=== PATIENT | male | born 1980 | race Caucasian/White ===

== ENCOUNTER 2017-02-20 08:28 | Emergency (ER) | payer OTHER | END 2017-02-20 09:47 | disposition home or self-care (01) | LOC: D.ER 08:28 | DX: M25.511 Pain in right shoulder (principal); K21.9 Gastro-esophageal reflux disease without esophagitis ==

== ENCOUNTER 2017-04-12 07:19 | Day surgery (SDC) | payer OTHER ==
[~2017-04-12 07:19] MED LIST: HYDROCODONE-APA1 TAB PO
--- NOTE | 2017-04-12 10:19 | NUR ---
PT SPOKE WITH DR. SAUNDERS ABOUT NOT EXPERIENCING PAIN TO THE RIGHT SHOULDER AT THIS TIME. SURGERY CANCELLED. FOLLOW-UP APPT SCHEDULED FOR 1 MONTH OUT. PREOP MEDICATIONS RETURNED TO [facility]. PT "DISCHARGED" WITH FAMILY, AMBULATING INDEPENDENTLY.
[2017-07-07] MEDS ORDERED: PHENERGAN DM SYR5 ML PO (09:15)
[2017-07-08 06:41] VITALS: BMI 24.8
== END 2017-04-12 10:15 | disposition home or self-care (01) ==
LOC: D.OPS 07:19 → D.PAN 11:15 → D.OPS 11:30 → D.PAN 11:30
DX: M75.41 Impingement syndrome of right shoulder (principal); Z01.812 Encounter for preprocedural laboratory examination; Z01.811 Encounter for preprocedural respiratory examination; Z01.810 Encounter for preprocedural cardiovascular examination; Z53.9 Procedure and treatment not carried out, unspecified reason

== ENCOUNTER 2017-07-08 05:30 | Day surgery (SDC) | payer OTHER ==
[~2017-07-08] VITALS: Ht 160 cm; Wt 63.5 kg
--- NOTE | ~2017-07-08 | OP ---
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 POSTOPERATIVE DIAGNOSES: Impingement syndrome and acromioclavicular arthritis of the right shoulder. PROCEDURES: Right shoulder arthroscopy with arthroscopic distal clavicle excision, arthroscopic subacromial decompression. SURGEON: Ted Saunders MD ANESTHESIA: General. INTRAOPERATIVE COMPLICATIONS: None. SUMMARY OF PATHOLOGIC FINDINGS: The patient had extensive excoriation of the coracoacromial ligament as well as acromioclavicular arthropathy consistent with the preoperative MRI and diagnosis. OPERATIVE SUMMARY IN DETAIL: After obtaining the appropriate preoperative orthopedic surgery consent as well as anesthetic consultation, evaluation and clearance, the patient was brought to the operating room and placed on the operating table in supine position. After adequate general laryngeal mask airway was administered, the patient was placed in the left lateral decubitus position. All pressure points were well padded to include down leg peroneal pad as well as axillary roll. The patient was held firmly to the operating table using the vacuum pack suction system. Right upper extremity and shoulder were then prepped and draped in routine sterile fashion. The arm was held in the Arthrex traction boom at 30 degrees of forward flexion, 30 degrees of abduction with 10 pounds of traction laterally. Arthroscopy was established in the glenohumeral joint from a posterior portal. Diagnostic arthroscopy showed no intraarticular pathology at all. Attention was then turned to the subacromial space. Arthroscopy was established in the subacromial space and the above findings were noted. Accessory lateral portal was created and through which the Bradshaw tissue ablation system was utilized to denude the undersurface of the acromion of all soft tissue elements and released the coracoacromial ligament. The patient did have a type 3 acromion. Type 3 acromion having been noted, acromioplasty was then performed with a 5-0 barrel alphonso to the acromioclavicular joint and through a separate arthroscopic anterior portal, 1 cm of the distal clavicle was excised under direct arthroscopic visualization. Having completed this, the bursa on top of the rotator cuff, portions of which had been eroded through down to the rotator cuff, was completely excised. The rotator cuff was not torn, only attritional changes seen on top of it, consistent with the diagnosis and longstanding impingement. Having completed this, arthroscopy portals were closed in routine interrupted fashion using 4-0 Prolene. Sterile dressings were applied. The patient was awakened and taken to the recovery room in stable condition. All final needle and sponge counts were correct. TRANSINT:[id number] Voice Confirmation ID: [id number] DOCUMENT ID: [id number] OPERATIVE REPORT [id number] ASHLEY ABAD MD, TED GATICA at 1346 CC: [id number] DICTATION DATE: 07/08/17912 KELP CUTTER: 07/08/17 1252 [facility] [address] [place] [address]
[~2017-07-08 05:30] MED LIST changes: +PHENERGAN DM SYR5 ML PO
[2017-07-08 06:41] VITALS: BP 119/67; Ht 160 cm; Wt 63.5 kg
[2017-07-08] MEDS ORDERED: HYDROCODONE-APA1 TAB PO (09:10)
== END 2017-07-08 11:40 | disposition home or self-care (01) ==
LOC: D.OPS 05:30 → D.PAN 11:30 → D.OPS 11:40 → D.PAN 11:45
DX: M75.41 Impingement syndrome of right shoulder (principal); M19.011 Primary osteoarthritis, right shoulder; Z01.812 Encounter for preprocedural laboratory examination

== ENCOUNTER 2020-03-10 03:57 | Inpatient (IN) | payer SELFPAY ==
[2020-03-10] VITALS (21 sets, daily range): BP systolic 84–106; BP diastolic 55–87; BMI 21.3
[~2020-03-10] VITALS: Ht 160 cm; Wt 68.9 kg
--- NOTE | ~2020-03-10 | EC ---
PATIENT:ASHLEY ABAD DATE OF SERVICE: 03/10/20 SEX: M MEDICAL RECORD: [id number] DATE OF : [birth year] LOCATION:D.M2 D.210 AGE OF PATIENT: 39 ADMISSION DATE: 03/10/20 REFERRING PHYSICIAN: INTERPRETING PHYSICIAN: KURT URBINA MD ECHOCARDIOGRAM REPORT ECHO CHARGES 4 ECHO COMPLETE Date: 03/11/20 CLINICAL DIAGNOSIS: NSTEMI ECHOCARDIOGRAPHIC MEASUREMENTS (adult normal given) AC root (d.<3.7cm) 2.8 cm LV Septum d (<1.2 cm> 1.0 cm Valve Excursion 1.5 cm LV Septum (systole) 1.1 cm Left Atria (s.<4.0cm> 3.7 cm LVPW d(<1.2cm) 1.1 cm RV (d.<2.3cm) 2.9 cm LVPW (sytole) 1.2 cm LV diastole(<5.6CM) 5.4 cm MV E-F(>70mm/sec) cm LV systole 4.0 cm LVOT Diameter 1.6 cm MV exc.(>10mm) 0.9 cm Est.ejection fraction (50-75%) % DOPPLER: LVIT cm/sec A 73 cm/sec E 55 cm/sec LA cm/sec RVSP 19 mmHg LVOT 109 cm/sec AOP1/2T m/s Asc. Ao 155 cm/sec RVOT 75 cm/sec RA cm/sec PA 121 cm/sec AV Gradient Peak 9.6 mmHg AV Mean 5.4 mmHg AV Area 1.3 cm MV Gradient Peak 3.4 mmHg MV Mean 1.9 mmHg MV Area cm COMMENTS: Trailer Body Assembler: Glendy PELAEZ Raw Sampler: 3 Dr. Sevilla TAPE# PACS Pericardial Effusion N DATE OF SERVICE: Adequate 2D, color-flow imaging, spectral Doppler, and M-Mode No LVH. LV internal dimension is normal. Wall motion is normal. EF is greater than or equal to 55%. Aortic valve is tricuspid. No evidence of stenosis by Doppler interrogation. Left atrium is normal. Mitral valve shows no prolapse. Trace MR. Right-sided chambers are grossly normal. Trace TR. TRANSINT:[id number] Voice Confirmation ID: [id number] DOCUMENT ID: [id number] ECHOCARDIOGRAM REPORT [id number] PACHECOVASQUEASHLEY Zarco GREGORY A MD CC: [id number] DICTATION DATE: 03/12/20 1458 HATCHERY ATTENDANT: 03/12/20 1722 ADM IN [facility] [address] [id number]
[2020-03-10 04:47] LABS: BASOPHILS 0.2 % (0-2); EOSINOPHILS 0.3 % (0-7); HEMATOCRIT 36.8 % (42.0-54.0); HEMOGLOBIN 12.9 g/dL (13.5-17.5); IMMATURE GRANULOCYTES 0.6 % (0-5); LYMPHOCYTES 10.7 % (15-50); MCH 30.4 pg (26.0-34.0); MCHC 35.1 g/dL (31.0-37.0); MCV 86.8 fL (80.0-100.0); MEAN PLATELET VOLUME 10.9 fL (7.4-10.4); MONOCYTES 3.1 % (2-11); NEUTROPHILS 85.1 % (40-80); PLATELET COUNT 138 10x3/uL (130-400); RBC 4.24 10x6/uL (4.20-6.10); RDW 13.4 % (11.5-14.5); WBC 11.2 10x3/uL (4.8-10.8)
[2020-03-10 04:56] LABS: CALC OSMOLALITY 260 mosm/kg (275-300); CALCIUM 7.9 mg/dL (8.5-10.1); CARBON DIOXIDE 21.8 mmol/L (21.0-32.0); CHLORIDE - SERUM 97 mmol/L (98-107); CREATININE - SERUM 1.2 mg/dL (0.6-1.3); GLUCOSE 155 mg/dL (74-106); POTASSIUM - SERUM 3.1 mmol/L (3.5-5.1); SODIUM 129 mmol/L (136-145); UREA NITROGEN 10 mg/dL (7-18); eGFR NON AFRICAN AMERICAN 72 mL/min (90-120)
[2020-03-10 04:57] LABS: INR 1.15 (0.85-1.17); PROTIME 14.6 SECONDS (11.6-15.0)
[2020-03-10] MEDS ORDERED: BUTALB-APAP-CA1 EACH PO (05:27)
[2020-03-10] MEDS ORDERED: AMOXICILLIN500 M1 PO (05:27)
[2020-03-10 05:37] LABS: ALBUMIN 2.7 g/dL (3.4-5.0); ALKALINE PHOSPHATASE 171 U/L (30-120); ALT (SGPT) 104 U/L (10-68); BILIRUBIN - TOTAL 1.49 mg/dL (0.2-1.3); CKMB 1.2 U/L (0.0-3.6); CREATINE KINASE 384 UL (21-232); MAGNESIUM - SERUM 1.7 mg/dL (1.8-2.4); PROTEIN - SERUM 6.6 g/dL (6.4-8.2)
[2020-03-10 05:39] LABS: FERRITIN 3965 ng/mL (3-244); TROPONIN-I 0.512 ng/mL (0.000-0.060)
[2020-03-10 07:04] LABS: UDS - AMPHET NEGATIVE QUAL (NEGATIVE); UDS - BARB POSITIVE QUAL (NEGATIVE); UDS - BENZO NEGATIVE QUAL (NEGATIVE); UDS - COCAINE NEGATIVE QUAL (NEGATIVE); UDS - OPIATE POSITIVE QUAL (NEGATIVE); UDS - PCP NEGATIVE QUAL (NEGATIVE); UDS - THC NEGATIVE QUAL (NEGATIVE)
--- NOTE | 2020-03-10 07:26 | NUR ---
PT BACK FROM CT DENIES ANY PROBLEMS AT THIS TIME.
[2020-03-10 07:49] LABS: BILIRUBIN NEGATIVE (NEGATIVE); KETONE NEGATIVE (NEGATIVE); NITRITE NEGATIVE (NEGATIVE); UROBILINOGEN NORMAL mg/dL (< 2)
[2020-03-10 07:50] LABS: BACTERIA FEW /HPF (NONE SEEN); WHITE CELLS - URINE 0-5 HPF (0-1)
[2020-03-10 08:25] LABS: AMYLASE - SERUM 34 U/L (25-115); LIPASE 143 U/L (73-393)
--- NOTE | 2020-03-10 08:34 | NUR ---
PT VOIDED 1600CC
--- NOTE | 2020-03-10 10:41 | NUR ---
PATIENT RECIEVED FROM ED AT 1000 AFTER REPORT RECIEVED.. CARE ASSUMED AND ASSESMENT DONE.. SEE FLOW SHEET FOR ASSESMENT FINDINGS.. NURSEING CARE BY TEAM NURSING LIZ BIRD RN AND MYSELF..
[2020-03-10 11:00] LABS: CKMB 1.8 U/L (0.0-3.6)
[2020-03-10 11:01] LABS: CREATINE KINASE 491 UL (21-232); TROPONIN-I 0.208 ng/mL (0.000-0.060)
--- NOTE | 2020-03-10 11:02 | NUR ---
TRANSPORTED TO CT VIA BED
--- NOTE | 2020-03-10 12:41 | NUR ---
LAB CALLED. PT COVID TEST WAS NEGATIVE. WILL CONTINUE TO MONITOR
--- NOTE | 2020-03-10 13:02 | NUR ---
8902 DR LARRY REQUEST THAT [facility] AND RESULTS OF COVID TEST DONE THERE A MONTH AGO BE OBTAINED.. AND WHAT TEST IF ANY WERE DONE ON WEDNESDAY OF THIS LAST WEEK ON A VISIT TO THE ED AT [facility].. WHEN [facility] CALLEFD THEY STATED THAT PATIENT HAD TESTED POSITIVE IN JANUARY FOR COVID BUT HE DID NOT HAVE A REPEAT TEAT OR AN ANTIBODY REST ON WEDNESDAY THE PATIENT TOLD DR LARRY HE HAD.. [facility] CALLED AND INFORMED THE NURSE THAT THE PATIENT TESTED NEGATIVE FOR COVID ON THE RAPID SCREENING DONE TODAY.. DR LARRY INFORMED OF ALL THE TESTING RESULTS.. NO FURTHUR ORDERS ARE RECIEVED AT THIS TIME..
--- NOTE | 2020-03-10 13:07 | NUR ---
NOTIFIED DR MADDEN OF CONSULT ON PT. PAGED CARDIOLOGY TO NOTIFY THEM OF CONSULT. WILL CONTINUE TO MONITOR
--- NOTE | 2020-03-10 13:10 | NUR ---
DR URBINA PAGED BACK. NOTIFIED OF CONSULT. WILL CONTINUE TO MONITOR
--- NOTE | 2020-03-10 13:41 | NUR ---
PAGED DR FALLON FOR CONSULT. AWAITING CALL BACK
--- NOTE | 2020-03-10 13:50 | NUR ---
SPOKE WITH DR FALLON. UPDATED HIM ON CONSULT AND PT STATUS. WILL CONTINUE TO MONITOR
[2020-03-10 17:17] LABS: CKMB 1.9 U/L (0.0-3.6); CREATINE KINASE 442 UL (21-232)
[2020-03-10 17:18] LABS: TROPONIN-I 0.077 ng/mL (0.000-0.060)
[2020-03-10 22:53] LABS: CKMB 1.7 U/L (0.0-3.6); CREATINE KINASE 409 UL (21-232)
[2020-03-10 22:56] LABS: TROPONIN-I 0.062 ng/mL (0.000-0.060)
[2020-03-11] VITALS (11 sets, daily range): BP systolic 98–122; BP diastolic 58–83; Ht 160 cm; Wt 68.9 kg
--- NOTE | 2020-03-11 04:19 | NUR ---
TEMP SPIKED TO 102.0 (ORAL). ADVIL ADMINISTERED.
[2020-03-11 04:42] LABS: BASOPHILS 0.1 % (0-2); EOSINOPHILS 0.2 % (0-7); HEMATOCRIT 37.3 % (42.0-54.0); HEMOGLOBIN 12.8 g/dL (13.5-17.5); IMMATURE GRANULOCYTES 0.5 % (0-5); LYMPHOCYTES 5.3 % (15-50); MCH 29.6 pg (26.0-34.0); MCHC 34.3 g/dL (31.0-37.0); MCV 86.3 fL (80.0-100.0); NEUTROPHILS 92.9 % (40-80); PLATELET COUNT 151 10x3/uL (130-400); RBC 4.32 10x6/uL (4.20-6.10); RDW 13.6 % (11.5-14.5)
[2020-03-11 05:03] LABS: WBC 15.6 10x3/uL (4.8-10.8)
[2020-03-11 05:09] LABS: ALBUMIN 2.3 g/dL (3.4-5.0); ALKALINE PHOSPHATASE 142 U/L (30-120); ALT (SGPT) 116 U/L (10-68); BILIRUBIN - TOTAL 0.64 mg/dL (0.2-1.3); CALC OSMOLALITY 268 mosm/kg (275-300); CALCIUM 8.1 mg/dL (8.5-10.1); CARBON DIOXIDE 25.1 mmol/L (21.0-32.0); CHLORIDE - SERUM 103 mmol/L (98-107); GLUCOSE 149 mg/dL (74-106); POTASSIUM - SERUM 3.4 mmol/L (3.5-5.1); PROTEIN - SERUM 6.1 g/dL (6.4-8.2); SODIUM 134 mmol/L (136-145); UREA NITROGEN 8 mg/dL (7-18); eGFR NON AFRICAN AMERICAN 89 mL/min (90-120)
--- NOTE | 2020-03-11 11:02 | NUR ---
INSPECTOR INSULATION IN ROOM PERFORMING ECHO. PT HAS VERY LOOSE STOOLS. WILL OBTAIN SAMPLE AND SEND TO LAB FOR TESTING.
--- NOTE | 2020-03-11 12:07 | NUR ---
STOOL SAMPLE OBTAINED. SAMPLE TAKEN TO LAB. ICE WATER PROVIDED TO PT REQUESTED.
--- NOTE | 2020-03-11 17:11 | NUR ---
PT AWAKE AND ORIENTED, PRIMARILY SPEAKS SPANSISH BUT DOES UNDERSTAND SERBIAN IN A SMALL COPACITY. SHOWERED SELF WITHOUT ASSISTANCE. CL IN REACH, SRX2.
[2020-03-12] VITALS: BP 104/72
--- NOTE | 2020-03-12 02:10 | NUR ---
PT A/O X4 RR EVEN AND UNLABORED. PT TEMP DOWN TO 99.7 FROM 101.9 STARTING AT 0024. ICE PACKS APPLIED BLANKETS OFF. 0239-PT RESTING COMFORTABLY AT THIS TIME WITH EYES CLOSED. NO S/S OF DISTRESS AT THIS TIME. BED LOW CALL LIGHT WITHIN REACH. WILL CONTINUE TO MONITOR.
[2020-03-12 04:00] VITALS: BP 83/59
[2020-03-12 05:52] LABS: BASOPHILS 0.2 % (0-2); HEMATOCRIT 37.2 % (42.0-54.0); HEMOGLOBIN 12.7 g/dL (13.5-17.5); IMMATURE GRANULOCYTES 0.4 % (0-5); LYMPHOCYTES 8.8 % (15-50); MCH 29.3 pg (26.0-34.0); MCHC 34.1 g/dL (31.0-37.0); MCV 85.9 fL (80.0-100.0); MEAN PLATELET VOLUME 11.9 fL (7.4-10.4); MONOCYTES 1.1 % (2-11); NEUTROPHILS 86.5 % (40-80); PLATELET COUNT 179 10x3/uL (130-400); RBC 4.33 10x6/uL (4.20-6.10); RDW 13.7 % (11.5-14.5)
[2020-03-12 05:54] LABS: WBC 11.4 10x3/uL (4.8-10.8)
[2020-03-12 06:49] LABS: ALBUMIN 2.1 g/dL (3.4-5.0); ALKALINE PHOSPHATASE 138 U/L (30-120); ALT (SGPT) 87 U/L (10-68); BILIRUBIN - TOTAL 0.82 mg/dL (0.2-1.3); CALC OSMOLALITY 269 mosm/kg (275-300); CALCIUM 7.7 mg/dL (8.5-10.1); CARBON DIOXIDE 27.6 mmol/L (21.0-32.0); CHLORIDE - SERUM 101 mmol/L (98-107); GLUCOSE 110 mg/dL (74-106); MAGNESIUM - SERUM 1.9 mg/dL (1.8-2.4); PHOSPHOROUS 2.9 mg/dL (2.5-4.9); PROTEIN - SERUM 5.8 g/dL (6.4-8.2); SODIUM 135 mmol/L (136-145); UREA NITROGEN 9 mg/dL (7-18); eGFR NON AFRICAN AMERICAN 89 mL/min (90-120)
[2020-03-12 06:50] LABS: TROPONIN-I 0.084 ng/mL (0.000-0.060)
[2020-03-12 07:03] LABS: ERYTHROCYTE SEDIMENTATION RATE 21 mm/hr (0-15)
--- NOTE | 2020-03-12 07:33 | NUR ---
PT LAYING SUPINE, RR EVEN AND UNLABORED. DENIES NEEDS OR PAIN AT THIS TIME. CALL LIGHT WITHIN REACH. BED IN LOWEST POSITION. FEVER 100.4 WILL RECIEVE TYLENOL PER ORDER. WILL CONTINUE TO MONITOR.
[2020-03-12 11:00] VITALS: BP 109/64
[2020-03-12 11:08] LABS: BILIRUBIN NEGATIVE (NEGATIVE); EPITHELIAL CELLS OCC /hpf (0-5); KETONE NEGATIVE (NEGATIVE); NITRITE NEGATIVE (NEGATIVE); UROBILINOGEN NORMAL mg/dL (< 2); WHITE CELLS - URINE RARE HPF (0-1)
[2020-03-12 11:09] LABS: BACTERIA FEW /HPF (NONE SEEN)
[2020-03-12 12:27] LABS: AMYLASE - SERUM 43 U/L (25-115); LIPASE 195 U/L (73-393)
[2020-03-12 14:00] VITALS: BP 97/63
--- NOTE | 2020-03-12 19:00 | NUR ---
REPORT RECEIVED, WILL CONTINUE POC. PATIENT IS AAOX4, SITTING UP IN BED. NO S/S OF DISTRESS OBSERVED, RR EVEN AND UNLABORED ON ROOM AIR. PIV TO LT UPPER ARM, PATENT, INFUSING NS @ 75ML/HR. PATIENT REQUESTING SHOWER. WRAPPED IV SITE, SUPPLIED TOWELS AND TOILETRIES. PATIETN DENIES FURTHER NEEDS AT THIS TIME. CL IN REACH, BED LOCKED AND LOWERED. WILL CTM.
[2020-03-12 20:00] VITALS: BP 89/54
[2020-03-13] VITALS: BP 96/62
[2020-03-13 04:00] VITALS: BP 103/67
[2020-03-13 06:00] LABS: BASOPHILS 0.2 % (0-2); EOSINOPHILS 5.2 % (0-7); HEMATOCRIT 32.7 % (42.0-54.0); HEMOGLOBIN 11.4 g/dL (13.5-17.5); IMMATURE GRANULOCYTES 0.6 % (0-5); LYMPHOCYTES 8.6 % (15-50); MCH 29.8 pg (26.0-34.0); MCHC 34.9 g/dL (31.0-37.0); MCV 85.4 fL (80.0-100.0); MEAN PLATELET VOLUME 10.7 fL (7.4-10.4); MONOCYTES 1.4 % (2-11); PLATELET COUNT 199 10x3/uL (130-400); RBC 3.83 10x6/uL (4.20-6.10); RDW 13.8 % (11.5-14.5); WBC 13.7 10x3/uL (4.8-10.8)
[2020-03-13 06:17] LABS: ALBUMIN 1.9 g/dL (3.4-5.0); ALKALINE PHOSPHATASE 129 U/L (30-120); ALT (SGPT) 82 U/L (10-68); BILIRUBIN - TOTAL 0.78 mg/dL (0.2-1.3); CALC OSMOLALITY 268 mosm/kg (275-300); CALCIUM 7.4 mg/dL (8.5-10.1); CARBON DIOXIDE 27.9 mmol/L (21.0-32.0); CHLORIDE - SERUM 103 mmol/L (98-107); CREATININE - SERUM 0.9 mg/dL (0.6-1.3); GLUCOSE 98 mg/dL (74-106); MAGNESIUM - SERUM 1.9 mg/dL (1.8-2.4); PHOSPHOROUS 2.4 mg/dL (2.5-4.9); PROTEIN - SERUM 5.4 g/dL (6.4-8.2); SODIUM 135 mmol/L (136-145); UREA NITROGEN 9 mg/dL (7-18); eGFR NON AFRICAN AMERICAN > 90 mL/min (90-120)
--- NOTE | 2020-03-13 06:18 | NUR ---
TEMP 101.5 ORAL. BLOOD CULTURES ORDERED. PRN MOTRIN ADMINISTERED PER ORDERS.
--- NOTE | 2020-03-13 07:20 | NUR ---
RECEIVE BEDSIDE SHIFT REPORT. AWAKE RESTING IN BED. PATIENT CALM AND STATES HE WOULD LIKE ICE PACKS FOR HIS FEVER OF 100.5. PREVIOUS NURSE GAVE MOTRIN THIS AM. TECHNICAL SYSTEM ANALYST CHECKING VITAL SIGNS AND HEART RATE IS 123 WITH RESPIRATIONS OF 40. PATIENT DENIES ANY TROUBLE BREATHING. I GAVE HIM AN INCENTIVE SPIROMETER TO TRY AND HELP HIM SLOW HIS BREATHING. DEMONSTRATED CORRECTLY. WILL CONTINUE PLAN OF CARE AND SAFETY PRECAUTIONS.
[2020-03-13 08:00] VITALS: BP 99/53
[2020-03-13 09:14] LABS: HEPATITIS C ANTIBODY <0.1 S/CO RAT (0.0-0.9)
[2020-03-13 11:13] LABS: ANA REFLEX - DIRECT Negative (Negative)
--- NOTE | 2020-03-13 13:20 | MORECARE ---
CASE MANAGEMENT DISCHARGE SUMMARY PATIENT: ASHLEY ABAD UNIT: [id number] ADM DATE: 03/10/20 AGE: 39 : [birth year] SEX: M ROOM/BED: D.2102 AUTHOR: EULALIA VEE PHYSICIAN: REFERRING PHYSICIAN: KURT DUKES MD DATE OF SERVICE: 03/13/20 Discharge Plan Patient Name: ASHLEY ABAD Facility: [facility]:[place] : 1980 Planned Disposition: Home Anticipated Discharge Date: Discharge Date: Expected LOS: Initial Reviewer: [email or web address] Initial Review Date: 03/13/2020 Generated: 03/13/20 2:19 pm DCPIA - Discharge Planning Initial Assessment Updated by [email or web address]: Amy Gallegos on 03/13/20 1:16 pm * Is the patient Alert and Oriented? Yes * PCP No PCP * Pharmacy [facility] on [address] * Preadmission Environment Home with Family * ADLs Independent * Equipment None * List name and contact numbers for known caregivers / representatives who currently or will assist patient after discharge: Yohana Ortiz [facility] - [phone] * Verbal permission to speak to the caregivers and representatives has been obtained from the patient. Yes * Community resources currently utilized None * Additional services required to return to the preadmission environment? No * Can the patient safely return to the preadmission environment? Yes * Has this patient been hospitalized within the prior 30 days at any hospital? No Patient Name: ASHLEY ABAD Page [phone] at 1320 All edits/amendments must be made on the electronic document DICTATION DATE: 03/13/20 1320 UTILITIES OPERATOR: CLIFF 03/13/20 1320 RPT#: [id number] DC DATE: STATUS: ADM IN [facility] [address] [place] [address] END OF REPORT
[2020-03-13] MEDS ORDERED: Vibramycin 100 MG/D5 IV (13:21)
[2020-03-13] MEDS ORDERED: VANCOMYCIN 1.5 GM/NS IV (13:21)
[2020-03-13] MEDS ORDERED: LOVENOX40 MG/0.4 SC (13:21)
[2020-03-13] MEDS ORDERED: LIBRIUM5 MG PO (13:21)
[2020-03-13] MEDS ORDERED: LEVOFLOXAC500 MG/100 IV (13:21)
[2020-03-13] MEDS ORDERED: FLAGYL 500500 MG/100 IV (13:21)
[2020-03-13] MEDS ORDERED: ULTRAM50 MG PO (13:22)
[2020-03-13] MEDS ORDERED: IBUPROFEN800 MG PO (13:22)
--- NOTE | 2020-03-13 13:30 | MORECARE ---
CASE MANAGEMENT DISCHARGE SUMMARY PATIENT: ASHLEY ABAD UNIT: [id number] ADM DATE: 03/10/20 AGE: 39 : [birth year] SEX: M ROOM/BED: D.2102 AUTHOR: NANDADOC PHYSICIAN: REFERRING PHYSICIAN: KURT DUKES MD DATE OF SERVICE: 03/13/20 Discharge Plan Patient Name: ASHLEY ABAD Facility: [facility]:[place] : 1980 Planned Disposition: Home Anticipated Discharge Date: Discharge Date: Expected LOS: Initial Reviewer: [email or web address] Initial Review Date: 03/13/2020 Generated: 03/13/20 2:29 pm Comments DCP- Discharge Planning Updated by [email or web address]: Amy Gallegos on 03/13/20 12:[address] Patient Name: ASHLEY ABAD Admission Status: ER Accout number: [id number] Admission Date: 03-10-2020 : 1980 Admission Diagnosis: Attending: YISEL Current LOS: 3 Anticipated DC Date: Planned Disposition: Home Primary Insurance: UNINSURED DISCOUNT PLAN Discharge Planning Comments: CM met with patient to complete initial dc planning assessment. CM educated patient on the CM role and verbal consent given by patient to complete assessment. Patient lives at home with his spouse, 16 year old daughter (Brandy), 13 year old (Blade) and 11 year old (Delroy). At discharge patient plans to return and feels this is a safe discharge. CM discussed availability of home health, rehab services, and medical equipment. Patient denied known discharge needs at this time. States he is ready to go home. I informed him that typically he needed to be fever free for 24 hours prior to discharge, voiced understanding. He was asking if his was safe to be touching him. I informed him that with a fever of unknown origin, they needed to use caution and stay 6 feet away when possible and use hand broom stitcher, voiced understanding. He states he does not speak good Spanish, but was able to communicate well with my questions. CM will continue to follow and will assist as needed with dc plans/needs. Life Coach: Amy Gallegos DCPIA - Discharge Planning Initial Assessment Updated by [email or web address]: Amy Gallegos on 03/13/20 1:16 pm * Is the patient Alert and Oriented? Yes * PCP No PCP * Pharmacy [facility] on [address] * Preadmission Environment Home with Family * ADLs Independent * Equipment None * List name and contact numbers for known caregivers / representatives who currently or will assist patient after discharge: Yohana turner - [phone] * Verbal permission to speak to the caregivers and representatives has been obtained from the patient. Yes * Community resources currently utilized None * Additional services required to return to the preadmission environment? No * Can the patient safely return to the preadmission environment? Yes * Has this patient been hospitalized within the prior 30 days at any hospital? No Last DP export: 03/13/20 12:20 p Patient Name: ASHLEY ABAD Page [phone] at 1330 All edits/amendments must be made on the electronic document DICTATION DATE: 03/13/20 133 RENTAL SALES REPRESENTATIVE: CLIFF 03/13/20 1330 RPT#: [id number] DC DATE: STATUS: ADM IN [facility] [address] [place] [address] END OF REPORT
--- NOTE | 2020-03-13 13:52 | MORECARE ---
CASE MANAGEMENT DISCHARGE SUMMARY PATIENT: ASHLEY ABAD UNIT: [id number] ADM DATE: 03/10/20 AGE: 39 : 82 SEX: M ROOM/BED: D.2102 AUTHOR: NANDA,DOC PHYSICIAN: REFERRING PHYSICIAN: KURT DUKES MD DATE OF SERVICE: 03/13/20 Discharge Plan Patient Name: ASHLEY ABAD Facility: [facility]:[place] : 1980 Planned Disposition: Home Anticipated Discharge Date: Discharge Date: Expected LOS: Initial Reviewer: [email or web address] Initial Review Date: 03/13/2020 Generated: 03/13/20 2:52 pm Comments DCP- Discharge Planning Updated by [email or web address]: Amy El on 03/13/20 12:[address] CM spoke with John Shaffer APN about transfer to [facility] for ID consult. John states that patient does not want to transfer, wants to stay here at [facility]. States she will see how he is doing tomorrow. CM will continue to follow and assist with discharge planning/needs. DCP- Discharge Planning Updated by [email or web address]: Amy Gallegos on 03/13/20 12:[address] Patient Name: ASHLEY ABAD Admission Status: ER Accout number: [id number] Admission Date: 03-10-2020 : 1980 Admission Diagnosis: Attending: YISEL Current LOS: 3 Anticipated DC Date: Planned Disposition: Home Primary Insurance: UNINSURED DISCOUNT PLAN Discharge Planning Comments: CM met with patient to complete initial dc planning assessment. CM educated patient on the CM role and verbal consent given by patient to complete assessment. Patient lives at home with his spouse, 16 year old daughter (Brandy), 13 year old (Blade) and 11 year old (Delroy). At discharge patient plans to return and feels this is a safe discharge. CM discussed availability of home health, rehab services, and medical equipment. Patient denied known discharge needs at this time. States he is ready to go home. I informed him that typically he needed to be fever free for 24 hours prior to discharge, voiced understanding. He was asking if his was safe to be touching him. I informed him that with a fever of unknown origin, they needed to use caution and stay 6 feet away when possible and use hand title checker, voiced understanding. He states he does not speak good Chilean, but was able to communicate well with my questions. CM will continue to follow and will assist as needed with dc plans/needs. Administrator Pesticide: Amy Gallegos DCPIA - Discharge Planning Initial Assessment Updated by [email or web address]: Amy Sarabiaelizabeth on 03/13/20 1:16 pm * Is the patient Alert and Oriented? Yes * PCP No PCP * Pharmacy [facility] [address] * Preadmission Environment Home with Family * ADLs Independent * Equipment None * List name and contact numbers for known caregivers / representatives who currently or will assist patient after discharge: Yohana turner - [phone] * Verbal permission to speak to the caregivers and representatives has been obtained from the patient. Yes * Community resources currently utilized None * Additional services required to return to the preadmission environment? No * Can the patient safely return to the preadmission environment? Yes * Has this patient been hospitalized within the prior 30 days at any hospital? No Last DP export: 03/13/20 12:30 p Patient Name: ASHLEY ABAD Page [phone] at 1352 All edits/amendments must be made on the electronic document DICTATION DATE: 03/13/20 1352 ENROLLMENT ADVISOR: CLIFF 03/13/20 1352 RPT#: [id number] DC DATE: STATUS: ADM IN [facility] [address] [place] [address] END OF REPORT
[2020-03-13 14:12] LABS: EHRLICHIA CHAFF IGG Negative (Neg:<1:64); EHRLICHIA CHAFF IGM Negative (Neg:<1:20); HGE IGG TITER Negative (Neg:<1:64); HGE IGM TITER Negative (Neg:<1:20)
[2020-03-13 15:13] LABS: WNVS - IGG Negative (Negative); WNVS - IGM Negative (Negative)
[2020-03-13 20:00] VITALS: BP 104/65
[2020-03-14] VITALS (9 sets, daily range): BP systolic 93–125; BP diastolic 45–81
[2020-03-14 03:09] LABS: RMSF IGM 0.28 index (0.00-0.89)
[2020-03-14 06:46] LABS: BASOPHILS 0.1 % (0-2); EOSINOPHILS 4.9 % (0-7); HEMATOCRIT 30.6 % (42.0-54.0); HEMOGLOBIN 10.6 g/dL (13.5-17.5); IMMATURE GRANULOCYTES 1.3 % (0-5); LYMPHOCYTES 14.6 % (15-50); MCH 29.7 pg (26.0-34.0); MCHC 34.6 g/dL (31.0-37.0); MCV 85.7 fL (80.0-100.0); MEAN PLATELET VOLUME 9.9 fL (7.4-10.4); MONOCYTES 2.1 % (2-11); RBC 3.57 10x6/uL (4.20-6.10); RDW 13.9 % (11.5-14.5); WBC 12.3 10x3/uL (4.8-10.8)
[2020-03-14 06:49] LABS: PLATELET COUNT 285 10x3/uL (130-400)
[2020-03-14 06:50] LABS: ALBUMIN 1.9 g/dL (3.4-5.0); ALKALINE PHOSPHATASE 157 U/L (30-120); ALT (SGPT) 108 U/L (10-68); BILIRUBIN - TOTAL 0.71 mg/dL (0.2-1.3); CALC OSMOLALITY 274 mosm/kg (275-300); CALCIUM 7.7 mg/dL (8.5-10.1); CARBON DIOXIDE 26.9 mmol/L (21.0-32.0); CHLORIDE - SERUM 104 mmol/L (98-107); CREATININE - SERUM 0.7 mg/dL (0.6-1.3); GLUCOSE 112 mg/dL (74-106); PHOSPHOROUS 3.5 mg/dL (2.5-4.9); POTASSIUM - SERUM 3.1 mmol/L (3.5-5.1); PROTEIN - SERUM 5.6 g/dL (6.4-8.2); SODIUM 138 mmol/L (136-145); UREA NITROGEN 7 mg/dL (7-18); eGFR NON AFRICAN AMERICAN > 90 mL/min (90-120)
--- NOTE | 2020-03-14 12:32 | NUR ---
Nutrition Follow-up: 0% breakfast recorded this AM. Noted no further diarrhea and pt feeling better. Diet: Regular Wt: 152# (03/11) Labs noted: K+ 3.1, Glu 112, Ca 7.7, Alb 1.9 Meds noted: NATALIE Salazar @ 125, electrolyte protocol -Encourage PO intake and honor food preferences within diet restrictions -Offer nutrition supplements. -Monitor wt. -RD following.
--- NOTE | 2020-03-14 19:50 | NUR ---
REPORT RECIEVED AND ROUNDING COMPLETE. PATIENT IN THE SHOWER, WHEN OUT OF THE SHOWER NOTICED THAT HIS PIV WITH LEAKING, WHEN FLUSHED THE PATIENT FELT PAIN. PIV FROM THE UPPER LEFT ARM WAS REMOVED AND NEW PIV WAS PLACED IN RIGHT WRIST, 20G 2 STICKS PATINET TOLERATED WELL. PATIENT IS A&O X4, AT BEDSIDE. NO NEEDS VOICED AT THIS TIME.NO S/SX OF DISTRESS AT THIS TIME. PATIENT LAYING IN LOW FOWLERS CALL LIGHT WITHIN REACH AND BED IN LOWEST LOCKED POSITION.
[2020-03-15 04:00] VITALS: BP 110/68
[2020-03-15 04:52] LABS: BASOPHILS 0.4 % (0-2); EOSINOPHILS 4.6 % (0-7); HEMATOCRIT 30.2 % (42.0-54.0); HEMOGLOBIN 10.3 g/dL (13.5-17.5); IMMATURE GRANULOCYTES 3.4 % (0-5); LYMPHOCYTES 21.8 % (15-50); MCH 29.8 pg (26.0-34.0); MCHC 34.1 g/dL (31.0-37.0); MCV 87.3 fL (80.0-100.0); MEAN PLATELET VOLUME 9.3 fL (7.4-10.4); MONOCYTES 3.9 % (2-11); NEUTROPHILS 65.9 % (40-80); RBC 3.46 10x6/uL (4.20-6.10); RDW 14.4 % (11.5-14.5)
[2020-03-15 04:59] LABS: PLATELET COUNT 374 10x3/uL (130-400)
[2020-03-15 05:14] LABS: ALBUMIN 1.9 g/dL (3.4-5.0); ALKALINE PHOSPHATASE 188 U/L (30-120); BILIRUBIN - TOTAL 0.45 mg/dL (0.2-1.3); CALC OSMOLALITY 274 mosm/kg (275-300); CHLORIDE - SERUM 104 mmol/L (98-107); CREATININE - SERUM 0.8 mg/dL (0.6-1.3); GLUCOSE 110 mg/dL (74-106); MAGNESIUM - SERUM 2.2 mg/dL (1.8-2.4); PHOSPHOROUS 4.2 mg/dL (2.5-4.9); PROTEIN - SERUM 5.8 g/dL (6.4-8.2); SODIUM 138 mmol/L (136-145); UREA NITROGEN 7 mg/dL (7-18); eGFR NON AFRICAN AMERICAN > 90 mL/min (90-120)
[2020-03-15 05:16] LABS: ALT (SGPT) 145 U/L (10-68); CALCIUM 6.9 mg/dL (8.5-10.1)
--- NOTE | 2020-03-15 07:15 | NUR ---
RECEIVE SHIFT REPORT. RESTING IN BED. DENIES ANY NEEDS AT THIS TIME. STATES HE DOES NOT WANT ANYMORE ANTIBIOTICS. HOPING HE CAN GO HOME TODAY. WILL DISCUSS WITH DOCTOR. CONTINUE PLAN OF CARE AND SAFETY PRECAUTIONS.
[2020-03-15 07:54] VITALS: BP 133/81
[2020-03-15 11:29] VITALS: BP 111/75
[2020-03-15 15:12] LABS: F. TULARENSIS - IGG Negative (Negative); F. TULARENSIS - IGM Negative (Negative)
[2020-03-15 16:16] VITALS: BP 117/71
--- NOTE | 2020-03-15 19:30 | NUR ---
PT IN BED, AAO X 3, RESP EVEN AND UNLABORED, NO DISTRESS NOTED, CL IN REACH, SR UP X 2.
[2020-03-15 20:17] VITALS: BP 131/74
[2020-03-15 22:43] VITALS: BP 120/83
--- NOTE | 2020-03-16 04:02 | NUR ---
I have reviewed this patient and I concur with the Shift Assessment completed by the Licensed Practical Nurse today this shift.
[2020-03-16 05:33] VITALS: BP 112/66
[2020-03-16 05:56] LABS: BASOPHILS 0.4 % (0-2); EOSINOPHILS 4.5 % (0-7); HEMATOCRIT 31.3 % (42.0-54.0); HEMOGLOBIN 10.4 g/dL (13.5-17.5); LYMPHOCYTES 24.4 % (15-50); MCH 29.5 pg (26.0-34.0); MCHC 33.2 g/dL (31.0-37.0); MCV 88.9 fL (80.0-100.0); MEAN PLATELET VOLUME 9.2 fL (7.4-10.4); MONOCYTES 8.1 % (2-11); NEUTROPHILS 57.6 % (40-80); PLATELET COUNT 475 10x3/uL (130-400); RBC 3.52 10x6/uL (4.20-6.10); RDW 14.9 % (11.5-14.5); WBC 8.2 10x3/uL (4.8-10.8)
[2020-03-16 06:07] LABS: ALBUMIN 2.1 g/dL (3.4-5.0); ALKALINE PHOSPHATASE 183 U/L (30-120); ALT (SGPT) 147 U/L (10-68); BILIRUBIN - TOTAL 0.47 mg/dL (0.2-1.3); CALC OSMOLALITY 275 mosm/kg (275-300); CALCIUM 8.1 mg/dL (8.5-10.1); CARBON DIOXIDE 25.9 mmol/L (21.0-32.0); CHLORIDE - SERUM 104 mmol/L (98-107); CREATININE - SERUM 0.7 mg/dL (0.6-1.3); GLUCOSE 106 mg/dL (74-106); MAGNESIUM - SERUM 2.1 mg/dL (1.8-2.4); PHOSPHOROUS 4.5 mg/dL (2.5-4.9); POTASSIUM - SERUM 3.4 mmol/L (3.5-5.1); PROTEIN - SERUM 6.1 g/dL (6.4-8.2); SODIUM 139 mmol/L (136-145); UREA NITROGEN 8 mg/dL (7-18); eGFR NON AFRICAN AMERICAN > 90 mL/min (90-120)
[2020-03-16 08:30] VITALS: BP 122/69
[2020-03-16] MEDS ORDERED: VIBRAMYCIN 100100 MG PO (10:20)
[2020-03-16] MEDS ORDERED: FLAGYL500 MG PO (10:20)
--- NOTE | 2020-03-16 10:50 | NUR ---
PT AWAKE AND ORIENTED, READY TO D/C. NO COMPLAINTS OR CONCERNS AT THIS TIME. CONT. MONITOR.
--- NOTE | 2020-03-16 13:08 | NUR ---
PT ESCORTED OUT VIA WHEELCHAIR TO POV, DRIVING.
--- NOTE | 2020-03-16 14:51 | MORECARE ---
CASE MANAGEMENT DISCHARGE SUMMARY PATIENT: ASHLEY ABAD UNIT: [id number] ADM DATE: 03/10/20 AGE: 39 : 82 SEX: M ROOM/BED: D.2102 AUTHOR: NANDA,DOC PHYSICIAN: REFERRING PHYSICIAN: KRUT DUKES MD DATE OF SERVICE: 03/16/20 Discharge Plan Patient Name: ASHLEY ABAD Facility: [facility]:[place] : 1980 Planned Disposition: Home Anticipated Discharge Date: 03/16/20 Discharge Date: 03/16/2020 Expected LOS: 6 Initial Reviewer: [email or web address] Initial Review Date: 03/13/2020 Generated: 03/16/20 3:50 pm DCP- Discharge Planning Updated by [email or web address]: Amy Sarabiaelizabeth on 03/13/20 12:[address] CM spoke with John Shaffer APN about transfer to [facility] for ID consult. John states that patient does not want to transfer, wants to stay here at [facility]. States she will see how he is doing tomorrow. CM will continue to follow and assist with discharge planning/needs. DCP- Discharge Planning Updated by [email or web address]: Amy Sarabiaelizabeth on 03/13/20 12:[address] Patient Name: ASHLEY ABAD Admission Status: Accout number: [id number] Admission Date: 03-10-2020 : 1980 Admission Diagnosis: Attending: YISEL Current LOS: 3 Anticipated DC Date: Planned Disposition: Home Primary Insurance: UNINSURED DISCOUNT PLAN Discharge Planning Comments: CM met with patient to complete initial dc planning assessment. CM educated patient on the CM role and verbal consent given by patient to complete assessment. Patient lives at home with his spouse, 16 year old daughter (Brandy), 13 year old (Blade) and 11 year old (Delroy). At discharge patient plans to return and feels this is a safe discharge. CM discussed availability of home health, rehab services, and medical equipment. Patient denied known discharge needs at this time. States he is ready to go home. I informed him that typically he needed to be fever free for 24 hours prior to discharge, voiced understanding. He was asking if his was safe to be touching him. I informed him that with a fever of unknown origin, they needed to use caution and stay 6 feet away when possible and use hand occupational therapy specialist, voiced understanding. He states he does not speak good Samoan, but was able to communicate well with my questions. CM will continue to follow and will assist as needed with dc plans/needs. Teacher Music: Amy Gallegos DCPIA - Discharge Planning Initial Assessment Updated by [email or web address]: Amy El on 03/13/20 1:16 pm * Is the patient Alert and Oriented? Yes * PCP No PCP * Pharmacy [facility] [address] * Preadmission Environment Home with Family * ADLs Independent * Equipment None * List name and contact numbers for known caregivers / representatives who currently or will assist patient after discharge: Yohana turner - [phone] * Verbal permission to speak to the caregivers and representatives has been obtained from the patient. Yes * Community resources currently utilized None * Additional services required to return to the preadmission environment? No * Can the patient safely return to the preadmission environment? Yes * Has this patient been hospitalized within the prior 30 days at any hospital? No Last DP export: 03/13/20 12:52 p Patient Name: ASHLEY ABAD Page [phone] at 1451 All edits/amendments must be made on the electronic document DICTATION DATE: 03/16/20 145 GOLD AND SILVER ASSAYER: CLIFF 03/16/20 1450 RPT#: [id number] DC DATE:03/16/20 STATUS: DIS IN [facility] [address] [place] [address] END OF REPORT
--- NOTE | 2020-03-16 14:58 | MORECARE ---
CASE MANAGEMENT DISCHARGE SUMMARY PATIENT: ASHLEY ABAD UNIT: [id number] ADM DATE: 03/10/20 AGE: 39 : [birth year] SEX: M ROOM/BED: D.2102 AUTHOR: NANDA,DOC PHYSICIAN: REFERRING PHYSICIAN: KURT DUKES MD DATE OF SERVICE: 03/16/20 Discharge Plan Patient Name: ASHLEY ABAD Facility: [facility]:[place] : 1980 Planned Disposition: Home Anticipated Discharge Date: 03/16/20 Discharge Date: 03/16/2020 Expected LOS: 6 Initial Reviewer: [email or web address] Initial Review Date: 03/13/2020 Generated: 03/16/20 3:57 pm Comments DCP- Discharge Planning Updated by [email or web address]: Chuckie Rizo on 03/16/20 1:[address] Patient Name: ASHLEY ABAD Encounter No: [id number] : 1980 Primary Insurance: UNINSURED DISCOUNT PLAN Anticipated DC Date: 03-16-2020 Planned Disposition: Home External Planned Provider: : DCP follow-up note: Patient states no DC needs at this time. Patient desires to DC home without HH, SNF, IPR, or DME. Patient states that his only concern is his hospital bill. Encouraged patient with the aid of his daughter, Ellie to follow up with Billing department to schedule payment plans. GoodRx card given to patient to aid in medication expense. Patient and family in agreement with discharge plan. No changes to plan. Case management will follow and assist as needed. Chuckie Rizo DCP- Discharge Planning Updated by [email or web address]: Amy Gallegos on 03/13/20 12:[address] CM spoke with John Shaffer APN about transfer to [facility] for ID consult. John states that patient does not want to transfer, wants to stay here at [facility]. States she will see how he is doing tomorrow. CM will continue to follow and assist with discharge planning/needs. DCP- Discharge Planning Updated by [email or web address]: Amy Gallegos on 03/13/20 12:[address] Patient Name: ASHLEY ABAD Admission Status: ER Accout number: [id number] Admission Date: 03-10-2020 : 1980 Admission Diagnosis: Attending: YISEL Current LOS: 3 Anticipated DC Date: Planned Disposition: Home Primary Insurance: UNINSURED DISCOUNT PLAN Discharge Planning Comments: CM met with patient to complete initial dc planning assessment. CM educated patient on the CM role and verbal consent given by patient to complete assessment. Patient lives at home with his spouse, 16 year old daughter (Brandy), 13 year old (Blade) and 11 year old (Delroy). At discharge patient plans to return and feels this is a safe discharge. CM discussed availability of home health, rehab services, and medical equipment. Patient denied known discharge needs at this time. States he is ready to go home. I informed him that typically he needed to be fever free for 24 hours prior to discharge, voiced understanding. He was asking if his was safe to be touching him. I informed him that with a fever of unknown origin, they needed to use caution and stay 6 feet away when possible and use hand community living specialist, voiced understanding. He states he does not speak good Maltese, but was able to communicate well with my questions. CM will continue to follow and will assist as needed with dc plans/needs. [employer] Team Member: Amy Gallegos DCPIA - Discharge Planning Initial Assessment Updated by [email or web address]: Amy Gallegos on 03/13/20 1:16 pm * Is the patient Alert and Oriented? Yes * PCP No PCP * Pharmacy [facility] on [address] * Preadmission Environment Home with Family * ADLs Independent * Equipment None * List name and contact numbers for known caregivers / representatives who currently or will assist patient after discharge: Yohana turner - [phone] * Verbal permission to speak to the caregivers and representatives has been obtained from the patient. Yes * Community resources currently utilized None * Additional services required to return to the preadmission environment? No * Can the patient safely return to the preadmission environment? Yes * Has this patient been hospitalized within the prior 30 days at any hospital? No Coverage Notice Reviewer: [email or web address] Diana Rizo Notice Issued Date-Time: 03/16/2020 11:53 Notice Type: Patient Choice Letter Notice Delivered To: Patient Relationship to Patient: Self Production Artist Name: Delivery Method: HAND - Hand Delivered Kristie Days: Prior Verbal Notification: Recipient Understood Notice: Yes Recipient Signature: Yes Med Rec Note Co-signed by Attending: Coverage Notice Comment: No needs, Patient refused HH, SNF, IPR, and DME Last DP export: 03/16/20 1:51 p Patient Name: ASHLEY ABAD Page [id number] at 1458 All edits/amendments must be made on the electronic document DICTATION DATE: 03/16/201456 WORKFORCE SPECIALIST: CLIFF 03/16/201456 RPT#: [id number] DC DATE:03/16/20 STATUS: DIS IN [facility] [address] [place] [address] END OF REPORT
--- NOTE | 2020-03-18 08:59 | MORECARE ---
CASE MANAGEMENT DISCHARGE SUMMARY PATIENT: ASHLEY ABAD UNIT: [id number] ADM DATE: 03/10/20 AGE: 39 : [birth year] SEX: M ROOM/BED: D.2102 AUTHOR: NANDA,DOC PHYSICIAN: REFERRING PHYSICIAN: KURT DUKES MD DATE OF SERVICE: 03/18/20 Discharge Plan Patient Name: ASHLEY ABAD Facility: [facility]:[place] : 1980 Planned Disposition: Home Anticipated Discharge Date: 03/16/20 Discharge Date: 03/16/2020 Expected LOS: 6 Initial Reviewer: [email or web address] Initial Review Date: 03/13/2020 Generated: 03/18/20 9:58 am Comments DCP- Discharge Planning Updated by [email or web address]: Chuckie Rizo on 03/16/20 1:[address] Patient Name: ASHLEY ABAD Encounter No: [id number] : 1980 Primary Insurance: UNINSURED DISCOUNT PLAN Anticipated DC Date: 03-16-2020 Planned Disposition: Home External Planned Provider: : DCP follow-up note: Patient states no DC needs at this time. Patient desires to DC home without HH, SNF, IPR, or DME. Patient states that his only concern is his hospital bill. Encouraged patient with the aid of his daughter, Ellie to follow up with Billing department to schedule payment plans. GoodRx card given to patient to aid in medication expense. Patient and family in agreement with discharge plan. No changes to plan. Case management will follow and assist as needed. Chuckie Rizo DCP- Discharge Planning Updated by [email or web address]: Amy Gallegos on 03/13/20 12:[address] CM spoke with John Shaffer APN about transfer to [facility] for ID consult. John states that patient does not want to transfer, wants to stay here at [facility]. States she will see how he is doing tomorrow. CM will continue to follow and assist with discharge planning/needs. DCP- Discharge Planning Updated by [id number]: Amy Gallegos on 03/13/20 12:[address] Patient Name: ASHLEY ABAD Admission Status: ER Accout number: [id number] Admission Date: 03-10-2020 : 1980 Admission Diagnosis: Attending: YISEL Current LOS: 3 Anticipated DC Date: Planned Disposition: Home Primary Insurance: UNINSURED DISCOUNT PLAN Discharge Planning Comments: CM met with patient to complete initial dc planning assessment. CM educated patient on the CM role and verbal consent given by patient to complete assessment. Patient lives at home with his spouse, 16 year old daughter (Brandy), 13 year old (Blade) and 11 year old (Delroy). At discharge patient plans to return and feels this is a safe discharge. CM discussed availability of home health, rehab services, and medical equipment. Patient denied known discharge needs at this time. States he is ready to go home. I informed him that typically he needed to be fever free for 24 hours prior to discharge, voiced understanding. He was asking if his was safe to be touching him. I informed him that with a fever of unknown origin, they needed to use caution and stay 6 feet away when possible and use hand metal die finisher, voiced understanding. He states he does not speak good [place], but was able to communicate well with my questions. CM will continue to follow and will assist as needed with dc plans/needs. Gauger Chief: Amy Gallegos DCPIA - Discharge Planning Initial Assessment Updated by [id number]: Amy Gallegos on 03/13/20 1:16 pm * Is the patient Alert and Oriented? Yes * PCP No PCP * Pharmacy [facility] on [address] * Preadmission Environment Home with Family * ADLs Independent * Equipment None * List name and contact numbers for known caregivers / representatives who currently or will assist patient after discharge: Yohana turner - [phone] * Verbal permission to speak to the caregivers and representatives has been obtained from the patient. Yes * Community resources currently utilized None * Additional services required to return to the preadmission environment? No * Can the patient safely return to the preadmission environment? Yes * Has this patient been hospitalized within the prior 30 days at any hospital? No Coverage Notice Reviewer: [email or web address] Diana Rizo Notice Issued Date-Time: 03/16/2020 11:53 Notice Type: Patient Choice Letter Notice Delivered To: Patient Relationship to Patient: Self Inspector Brake Lining Name: Delivery Method: HAND - Hand Delivered Kristie Days: Prior Verbal Notification: Recipient Understood Notice: Yes Recipient Signature: Yes Med Rec Note Co-signed by Attending: Coverage Notice Comment: No needs, Patient refused HH, SNF, IPR, and DME Last DP export: 03/16/20 1:58 p Patient Name: ASLHEY ABAD Page [id number] at 0859 All edits/amendments must be made on the electronic document DICTATION DATE: 03/18/20857 PEDIATRIC NEPHROLOGIST: CLIFF 03/18/20857 RPT#: [id number] DC DATE:03/16/20 STATUS: DIS IN [facility] [address] [place] [address] END OF REPORT
== END 2020-03-16 13:08 | disposition home or self-care (01) | DRG 871 ==
LOC: D.ER 03:57 → D.EDHOLD 08:40 → D.ICU 08:40 → D.M2 08:40 → D.ICU 09:29 → D.M2 03-11 16:11
PROVIDERS: Emergency Medicine; Family Medicine; Internal Medicine Pulmonary Disease; ADMIT Family Medicine; ATTEND Family Medicine
DX: A41.9 Sepsis, unspecified organism (principal); I21.4 Non-ST elevation (NSTEMI) myocardial infarction; E43 Unspecified severe protein-calorie malnutrition; E87.1 Hypo-osmolality and hyponatremia; J98.11 Atelectasis; K52.9 Noninfective gastroenteritis and colitis, unspecified; R51 Headache; D64.9 Anemia, unspecified; E87.6 Hypokalemia; R21 Rash and other nonspecific skin eruption; Z68.21 Body mass index [BMI] 21.0-21.9, adult; Z86.19 Personal history of other infectious and parasitic diseases

== ENCOUNTER → 2020-03-22 10:20 | Outpatient (CLI) | payer MEDICAID ==
[2020-03-11 14:53] VITALS: BMI 26.9
--- NOTE | ~2020-03-22 | EC ---
PATIENT:ASHLEY ABAD DATE OF SERVICE: 03/22/20 SEX: M MEDICAL RECORD: [id number] DATE OF : [birth year] LOCATION:[facility] AGE OF PATIENT: 39 ADMISSION DATE: 03/22/20 REFERRING PHYSICIAN: INTERPRETING PHYSICIAN: MINERVA GUILLEN MD ECHOCARDIOGRAM REPORT ECHO CHARGES 4 ECHO COMPLETE Date: 03/22/20 CLINICAL DIAGNOSIS: CHEST PAIN, ASSESS FOR ENDOCARDITIS/CARDIOMYOPATHY ECHOCARDIOGRAPHIC MEASUREMENTS (adult normal given) AC root (d.<3.7cm) 3.4 cm LV Septum d (<1.2 cm> 1.1 cm Valve Excursion 1.2 cm LV Septum (systole) 1.5 cm Left Atria (s.<4.0cm> 3.6 cm LVPW d(<1.2cm) 1.3 cm RV (d.<2.3cm) 3.4 cm LVPW (sytole) 1.7 cm LV diastole(<5.6CM) 4.7 cm MV E-F(>70mm/sec) cm LV systole 2.7 cm LVOT Diameter 1.8 cm MV exc.(>10mm) 1.5 cm Est.ejection fraction (50-75%) % DOPPLER: LVIT cm/sec A 66.0 cm/sec E 57.0 cm/sec LA cm/sec RVSP 21 mmHg LVOT 133 cm/sec AOP1/2T m/s Asc. Ao 154 cm/sec RVOT 82 cm/sec RA cm/sec PA 151 cm/sec AV Gradient Peak 9.52 mmHg AV Mean 4.43 mmHg AV Area 1.9 cm MV Gradient Peak 2.37 mmHg MV Mean 1.00 mmHg MV Area cm COMMENTS: Presetter Operator: 2 INO PARKER Venetian Blind Tape Cutter: 2 Dr. Bruner TAPE# PACS Pericardial Effusion N DATE OF SERVICE: CLINICAL DIAGNOSIS: Chest pain. FINDINGS: Left ventricle - normal left ventricular chamber size and contractile function with ejection fraction 55% to 60%. Left atrial chamber appears normal. Right atrium and right ventricular chamber size and function appears normal. Aortic valve appears normal, trileaflet. No aortic stenosis/regurgitation. Mitral valve appears normal. Trace mitral regurgitation. Tricuspid valve appears normal. Trace tricuspid regurgitation. Pulmonic valve appears normal. ECHOCARDIOGRAM REPORT [id number] ASHLEY ABAD No pulmonary regurgitation/stenosis. No pericardial effusion. No obvious valvular vegetations visualized. IMPRESSION: Normal left ventricular chamber size and contractile function with ejection fraction of 55% to 60%. TRANSINT:[id number] Voice Confirmation ID: [id number] DOCUMENT ID: [id number] MINERVA GUILLEN MD CC: [id number] DICTATION DATE: 03/23/20 1152 ADJUSTER ELECTRICAL CONTACTS: 03/23/20 1303 DEP CLI 03/22/20 [place] [id number] [place] [id number]
[~2020-03-22 10:20] MED LIST changes: +AMOXICILLIN500 M1 PO; +BUTALB-APAP-CA1 EACH PO; +FLAGYL 500500 MG/100 IV; +FLAGYL500 MG PO; +IBUPROFEN800 MG PO; +LEVOFLOXAC500 MG/100 IV; +LIBRIUM5 MG PO; +LOVENOX40 MG/0.4 SC; +ULTRAM50 MG PO; +VANCOMYCIN 1.5 GM/NS IV; +VIBRAMYCIN 100100 MG PO; +Vibramycin 100 MG/D5 IV
== END | disposition home or self-care (01) ==
LOC: D.HCCECHO 10:20
PROVIDERS: ATTEND Internal Medicine Cardiovascular Disease
DX: R07.9 Chest pain, unspecified (principal)